=== PATIENT | female | born 1950 | race Caucasian/White ===

== ENCOUNTER 2020-11-05 09:31 | Outpatient (REF) | payer BC, SELFPAY ==
[2020-11-05 12:03] LABS: Alanine Aminotransferase 10 U/L (0-31); Anion Gap 15 (12-20); Aspartate Amino Transferase 15 U/L (5-31); Blood Urea Nitrogen 11 mg/dL (9-16); Calcium 9.1 mg/dL (8.4-10.2); Carbon Dioxide 25 mmol/L (22-29); Chloride 108 mmol/L (96-108); Cholesterol 180 mg/dL; Estimated Glomerular Filt Rate > 60; Glucose Fasting 74 mg/dL (60-99); HDL Cholesterol 49 mg/dL; LDL Cholesterol Calculated 115 mg/dl; Potassium 4.5 mmol/L (3.3-5.1); Sodium 143 mmol/L (135-145); Triglycerides 82 mg/dL
[2020-11-05 12:08] LABS: Vitamin D 25-OH Total 49.6 ng/mL (>30)
== END 2020-11-05 09:32 | disposition home or self-care (01) ==
LOC: HO.HMGCLDS 09:31
PROVIDERS: PCP Internal Medicine; Visit Provider Internal Medicine
DX: M81.0 Age-related osteoporosis without current pathological fracture (principal); I10 Essential (primary) hypertension; E78.5 Hyperlipidemia, unspecified; Z78.0 Asymptomatic menopausal state; Z86.79 Personal history of other diseases of the circulatory system
CPT/HCPCS: 36415; 80048; 80061; 82306; 84450; 84460

== ENCOUNTER 2020-11-28 13:00 | Outpatient (RCR) | payer BC, SELFPAY ==
--- NOTE | 2021-05-15 09:42 | MHC.PT.DC ---
[facility] [place] Office [place] Office [place] Office [address] Nite[place] Gauthier [address] [phone] F: [phone] F: [phone] F: [phone] F: [phone] Physical Therapy Discharge Report Diagnosis: R shoulder pain Date of Surgery: Date of Evaluation: 11/26/20 Date of Discharge: 01/15/21 Treatments to Date: 2 Cancellations to Date: 0 No Shows to Date: 0 Discharge Status: Discharge Summary: Pt elected to stop PT at this time. Unsafe incline. She does have a brief HEP. Electronically signed by: Brandan Burks PT Please sign and return to therapist. Thank you for your referral.
== END 2021-01-15 08:45 | disposition home or self-care (01) ==
LOC: HO.PTCHIC 13:00
PROVIDERS: PCP Internal Medicine; Visit Provider Internal Medicine
DX: M25.511 Pain in right shoulder (principal)
CPT/HCPCS: 97110; 97140; 97162

== ENCOUNTER 2021-01-01 11:56 | Outpatient (REF) | payer BC, SELFPAY ==
--- NOTE | ~2021-01-01 | MM_ITS ---
EXAMINATION: MM SCREENING DIGITAL BREAST TOMOSYNTHESIS, BILATERAL CLINICAL INFORMATION: Screening. Asymptomatic. Right excisional biopsy 06/09/2018 (Benign breast tissue with radial sclerosing lesion, sclerosing adenosis, usual ductal hyperplasia, apocrine metaplasia, microcysts and fibrocystic changes with microcalcifications. Biopsy site changes are present). The lifetime risk of breast cancer based on the Tyrer-Cuzick Model is 7%. COMPARISON: Mammography: 09/21/2019, 12/10/2018, 06/09/2018, 04/22/2018, 04/09/2018, 11/26/2016 TECHNIQUE: Digital breast tomosynthesis is performed in both the craniocaudal and mediolateral oblique views along with computer-aided detection (CAD). Synthesized 2D images are generated from the tomosynthesis. FINDINGS: The breasts are heterogeneously dense, which may obscure small masses (ACR BI-RADS breast composition Category c). Parenchymal pattern is similar to prior study. There are post surgical changes right breast with stable scarring anterior breast. Neither breast shows interval mass or architectural abnormality. There are benign coarse calcifications again seen central left breast and mid 12:00 right breast. The axilla and skin contours are unremarkable. No significant changes. MM/MM tomosynthesis screening BI IMPRESSION: No mammographic evidence of malignancy. ASSESSMENT: BI-RADS 2: Benign RECOMMENDATION: Routine annual mammography screening. This patient's information was entered into a reminder system with a target due date for their next mammogram.
--- NOTE | ~2021-01-01 | MM_ITS ---
EXAMINATION: BONE DENSITOMETRY CLINICAL INDICATION: Asymptomatic menopausal state. COMPARISON: Baseline BD dated 04/09/2018. TECHNIQUE: Using a [employer] DXA System (software version: 13.1) manufactured by [employer], dual-energy x-ray absorptiometry was performed of the lumbar spine and left hip. The images are of good technical quality. Summary results are attached. FINDINGS: AP SPINE L1-L4 (excluding L3): The data of L1-L4 has been changed to exclude the L3 vertebral body, because probable degenerative changes at this level may cause overestimation of lumbar spine density. Current: BMD 0.971 g/cm2, Z-score 0.6, T-score -1.7, osteopenia, 1.7% increase from baseline (<5% change is not significant). Baseline: BMD 0.955 g/cm2. LEFT FEMUR, NECK: Current: BMD 0.670 g/cm2, Z-score -0.6, T-score -2.6, osteoporosis. Baseline: BMD 0.666 g/cm2. LEFT FEMUR, TOTAL: Current: BMD 0.668 g/cm2, Z-score -0.8, T-score -2.7, osteoporosis, 0.9% increase from baseline (<5% change is not significant). Baseline: BMD 0.662 g/cm2. IDENTIFIED RISK FACTORS: Menopause, history of fracture (adult), tobacco use (current smoker), height loss. HISTORY OF FRACTURE: Wrist. MEDICATIONS: Vitamin D. MM/XR DEXA axial skeleton IMPRESSION: 1. DIAGNOSIS: Osteoporosis based on the lowest T-score value of -2.7 in the total femur applying World Health Organization criteria. 2. 10-YEAR FRACTURE RISK PREDICTION, FRAX: Major osteoporotic fracture (clinical spine, forearm, hip or shoulder) 24.7%. Hip fracture 10.2%. 3. Treatment Recommendations: NOF guidelines recommend consideration for treatment in postmenopausal women and men age 50 and older presenting with the following: -A hip or vertebral (clinical or morphometric) fracture. -T-score less than or equal to -2.5 at the femoral neck or spine after appropriate evaluation to exclude secondary causes. -Low bone mass at the hip or spine and a 10-year fracture probability by FRAX of greater than or equal to 3% for hip fracture or greater than or equal to 20% for major osteoporotic fracture based on the [place] adapted WHO algorithm. 4. Other Recommendations: All treatment decisions require clinical judgment and consideration of individual patient factors, including patient preferences, comorbidities, previous drug use, risk factors not captured in the FRAX model (e.g. frailty, falls, vitamin D deficiency, increased bone turnover, interval significant decline in bone density) and possible under or overestimation of fracture risk by FRAX. Additional medical evaluation for secondary cause of low bone mineral density may be appropriate. FUTURE SCAN RECOMMENDATION: People with diagnosed cases of osteoporosis or at high risk for fracture should have regular bone mineral density tests. For patients eligible for Medicare, routine testing is allowed once every 2 years. The testing frequency can be increased to one year for patients who have rapidly progressing disease, those who are receiving or discontinuing medical therapy to restore bone mass, or have additional risk factors.
== END 2021-01-01 11:57 | disposition home or self-care (01) ==
LOC: HO.MAMMO 11:56
PROVIDERS: PCP Internal Medicine; Visit Provider Internal Medicine
DX: Z13.820 Encounter for screening for osteoporosis (principal); Z78.0 Asymptomatic menopausal state; Z12.31 Encounter for screening mammogram for malignant neoplasm of breast
CPT/HCPCS: 77063; 77067; 77080

== ENCOUNTER 2021-08-05 12:32 | Outpatient (REF) | payer BC, SELFPAY ==
[2021-08-05 14:12] LABS: Alanine Aminotransferase 7 U/L (0-31); Anion Gap 11 (12-20); Aspartate Amino Transferase 13 U/L (5-31); Blood Urea Nitrogen 14 mg/dL (9-16); Calcium 9.7 mg/dL (8.4-10.2); Carbon Dioxide 26 mmol/L (22-29); Chloride 107 mmol/L (96-108); Cholesterol 160 mg/dL; Estimated Glomerular Filt Rate 58; Glucose Fasting 94 mg/dL (60-99); HDL Cholesterol 34 mg/dL; LDL Cholesterol Calculated 91 mg/dl; Potassium 4.4 mmol/L (3.3-5.1); Sodium 140 mmol/L (135-145); Triglycerides 178 mg/dL
[2021-08-05 14:35] LABS: Vitamin D 25-OH Total 54.7 ng/mL (>30)
== END 2021-08-05 12:33 | disposition home or self-care (01) ==
LOC: HO.HMGCLDS 12:32
PROVIDERS: PCP Internal Medicine; Visit Provider Internal Medicine
DX: E78.5 Hyperlipidemia, unspecified (principal); M81.0 Age-related osteoporosis without current pathological fracture; Z78.0 Asymptomatic menopausal state; I10 Essential (primary) hypertension
CPT/HCPCS: 36415; 80048; 80061; 82306; 84450; 84460

== ENCOUNTER 2022-03-24 10:24 | Outpatient (REF) | payer BC, SELFPAY ==
[2022-03-24 10:56] LABS: MANUAL DIFF FLAG NO
--- NOTE | 2022-03-24 11:00 | ECG_ITS ---
Test Reason : HYPERLIPIDEMIA Blood Pressure : / mmHG Vent. Rate : 087 BPM Atrial Rate : 087 BPM P-R Int : 128 ms QRS Dur : 070 ms QT Int : 368 ms P-R-T Axes : 079 056 078 degrees QTc Int : 442 ms Normal sinus rhythm Normal ECG No previous ECGs available Referred By: Shilpa Maurer Electronically Signed By:KYLE OSORIO
[2022-03-24 11:37] LABS: Basophils Absolute Auto 0.1 X10*3/uL (0.0-0.2); Basophils Percent Auto 1.3 % (0-2); Eosinophils Absolute Auto 0.2 X10*3/uL (0.0-0.4); Eosinophils Percent Auto 1.9 % (0-4); Hematocrit 37.2 % (37.0-47.0); Hemoglobin 12.2 g/dl (12.0-16.0); Imm Gran Abs Auto 0.03 X10*3/uL (0.00-0.03); Imm Gran Pct Auto 0.3 % (0.0-0.4); Lymphocytes Absolute Auto 2.3 X10*3/uL (1.2-4.9); Lymphocytes Percent Auto 23.3 % (20-40); Mean Corpuscular HGB Conc 32.8 g/dl (31.0-35.0); Mean Corpuscular Volume 94.4 fL (80.0-98.0); Mean Platelet Volume 10.1 fL (9.4-12.3); Monocytes Absolute Auto 0.7 X10*3/uL (0.1-1.2); Monocytes Percent Auto 6.8 % (2-11); Neutrophils Absolute Auto 6.6 x10*3/uL (2.0-8.3); Neutrophils Percent Auto 66.4 % (45-73); Platelet Count 304 X10*3/uL (160-400); Red Blood Count 3.94 X10*6/uL (4.20-5.50); Red Cell Distribution Width 14.6 % (11.0-16.0); White Blood Count 9.9 X10*3/uL (4.8-10.8)
[2022-03-24 12:23] LABS: Alanine Aminotransferase 7 U/L (0-31); Anion Gap 15 (12-20); Aspartate Amino Transferase 13 U/L (5-31); Blood Urea Nitrogen 10 mg/dL (9-16); Calcium 9.3 mg/dL (8.4-10.2); Carbon Dioxide 26 mmol/L (22-29); Chloride 107 mmol/L (96-108); Cholesterol 149 mg/dL; Estimated Glomerular Filt Rate 49; Glucose Fasting 84 mg/dL (60-99); HDL Cholesterol 39 mg/dL; LDL Cholesterol Calculated 94 mg/dl; Potassium 4.7 mmol/L (3.3-5.1); Sodium 143 mmol/L (135-145); Triglycerides 83 mg/dL
[2022-03-24 12:29] LABS: Vitamin D 25-OH Total 65.5 ng/mL (>30)
== END 2022-03-24 10:25 | disposition home or self-care (01) ==
LOC: HO.LAB 10:24
PROVIDERS: PCP Internal Medicine; Visit Provider Internal Medicine
DX: Z01.818 Encounter for other preprocedural examination (principal); E78.5 Hyperlipidemia, unspecified; Z78.0 Asymptomatic menopausal state; Z95.828 Presence of other vascular implants and grafts
CPT/HCPCS: 36415; 80048; 80061; 82306; 84450; 84460; 85025; 93005

== ENCOUNTER 2022-10-01 13:09 | Outpatient (REF) | payer BC, SELFPAY ==
[2022-10-01 14:20] LABS: Alanine Aminotransferase 6 U/L (0-31); Aspartate Amino Transferase 14 U/L (5-31); Cholesterol 155 mg/dL; HDL Cholesterol 43 mg/dL; LDL Cholesterol Calculated 94 mg/dl; Triglycerides 93 mg/dL
== END 2022-10-01 13:10 | disposition home or self-care (01) ==
LOC: HO.HMGCLDS 13:09
PROVIDERS: PCP Internal Medicine; Visit Provider Internal Medicine
DX: F41.8 Other specified anxiety disorders (principal); N95.9 Unspecified menopausal and perimenopausal disorder
CPT/HCPCS: 36415; 80061; 82306; 84450; 84460

== ENCOUNTER 2022-10-08 14:56 | Outpatient (REF) | payer BC, SELFPAY ==
--- NOTE | ~2022-10-08 | MM_ITS ---
EXAMINATION: MM SCREENING DIGITAL BREAST TOMOSYNTHESIS, BILATERAL CLINICAL INFORMATION: Screening. Asymptomatic. Right excisional biopsy 06/09/2018 (radial sclerosing lesion, sclerosing adenosis, usual ductal hyperplasia, apocrine metaplasia, microcysts and fibrocystic changes). The lifetime risk of breast cancer based on the Tyrer-Cuzick Model is 4%. COMPARISON: Multiple prior mammography exams, most recent 01/01/2021. TECHNIQUE: Digital breast tomosynthesis is performed in both the craniocaudal and mediolateral oblique views along with computer-aided detection (CAD). Synthesized 2D images are generated from the tomosynthesis. FINDINGS: The breasts are heterogeneously dense, which may obscure small masses (ACR BI-RADS breast composition Category c). Breast tissue composition borders on extremely dense. There is stable scarring anterior right breast. Scattered bilateral asymmetries are similar to prior exam. No interval architectural abnormality or developing density. No abnormal calcifications. The axilla are unremarkable. No significant changes. MM/MM tomosynthesis screening BI IMPRESSION: No mammographic evidence of malignancy. ASSESSMENT: BI-RADS 2: Benign RECOMMENDATION: Routine annual mammography screening. This patient's information was entered into a reminder system with a target due date for their next mammogram.
== END 2022-10-08 14:57 | disposition home or self-care (01) ==
LOC: HO.MAMMO 14:56
PROVIDERS: Visit Provider Internal Medicine
DX: Z12.31 Encounter for screening mammogram for malignant neoplasm of breast (principal)
CPT/HCPCS: 77063; 77067

== ENCOUNTER 2022-12-25 12:46 | Outpatient (AMB) | payer BC, SELFPAY ==
[2022-12-25 13:06] VITALS: BP 108/64; PULSE 94; O2SAT 98; BMI 19.2
--- NOTE | 2022-12-25 13:06 | A.OFFPC_ITS ---
<Statement entered by Shilpa Maurer MD - 08/28/25 00:12> This note has been administratively?closed. Vital Signs 12/25/22 13:06 Height 4 ft 11 in Weight 95 lb BMI 19.2 BP 108/64 Blood Pressure Location Rt brachial Position Sitting Pulse 94 Pulse Source Pulse Oximeter Pulse Oximetry (%) 98 Oxygen Delivery Method Room Air Intake Visit Reasons: Physical exam Intake Note: Pt is here today for her PE Allergies No Known Allergies (No Known Allergies*) Allergy (Verified 07/01/24 11:06) anti-depressions Allergy (Unknown, Uncoded 07/01/24 11:06) nausea and vomiting Medication List - Last Reconciled 12/25/22 by Shilpa Maurer MD alprazolam 1 mg PO atorvastatin 40 mg PO DAILY cholecalciferol (vitamin D3) 50 mcg PO DAILY desoximetasone 0.25% 1 appl topical BID mometasone 0.1% 1 appl topical DAILY 10 days quetiapine 50 mg PO BEDTIME Tobacco use date assessed: 12/25/22 Fall risk assessment: No Falls in past year Last assessed Fall Risk: 12/25/22 HPI Physical exam HPI Details 72-year-old lady here today for physical exam. She has dyslipidemia currently on atorvastatin 40 mg daily, has osteoporosis, declines further treatment or testing, taking vitamin-D 3 supplements . She has history of depression with anxiety currently on alprazolam as needed as well as quetiapine 50 mg at bedtime currently followed by Antolin Gore and gets regular counseling. She is up-to-date with her screening mammogram, due for a bone density scan this year, but patient declines testing as she does not want to start any treatment for her osteoporosis.. Has never had a colon cancer screening, declines procedure but willing to do the Cologuard testing. Declines getting COVID vaccine or flu shot, getting pneumonia vaccine or shingles vaccine, but is up-to-date with her Tdap [facility] Medical History (Updated 07/02/24 @ 02:31 by Shilpa Maurer MD) Adenocarcinoma of lung Lung cancer History of non-ST elevation myocardial infarction (NSTEMI) Osteoporosis Vaccination declined by patient Dermatochalasis, bilateral Ptosis, left Positional lightheadedness Otalgia of right ear Dermatitis Not ready to quit smoking Right shoulder pain Menopause Cataracts, both eyes Unspecified amblyopia, left eye Closed extra-articular fracture of distal end of right radius Eczema Depression with anxiety Dyslipidemia History of abdominal aortic aneurysm Astigmatism of both eyes Surgical History History of blepharoplasty History of repair of aneurysm of abdominal aorta using endovascular stent graft H/O breast biopsy History of tonsillectomy Family History Father No problems noted. Mother No problems noted. Sister No problems noted. Son No problems noted. Maternal Aunt No problems noted. Social History Housing: House Alcohol intake: never Patient Tobacco Use Status: Former Tobacco user e-Cigarette/Vaping Use: Never Used service: No Current occupational status: retired Cognitive needs: No Hearing needs: No Vision needs: Yes Questionnaire PHQ-9 Over the last 2 weeks, how often have you been bothered by any of the following problems? 1. Little interest or pleasure in doing things: more than half the days 2. Feeling down, depressed, or hopeless: more than half the days 3. Trouble falling or staying asleep, or sleeping too much: several days 4. Feeling tired or having little energy: more than half the days 5. Poor appetite or overeating: nearly every day 6. Feeling bad about yourself - or that you are a failure or have let yourself or your family down: several days 7. Trouble concentrating on things, such as reading the newspaper or watching television: several days 8. Moving or speaking so slowly that other people could have noticed. Or the opposite - being so fidgety or restless that you have been moving around a lot more than usual: not at all 9. Thoughts that you would be better off or of hurting yourself in some way: several days Total score: 13 Depression Screening Interpretation: Positive Depression Screening Follow-up: Existing condition, In treatment and Community Mental Health Worker F/U (Followed by Benny Gore and gets regular counseling) [id number] - PHQ-9 Billing: Yes Source: Developed by Drs. Shaji Sky, Lauren BJey Crowell and colleagues, with an educational lan from [employer]. Thrive Questionnaire Date Thrive assessed: 08/05/21 I am a: Patient What is your living situation today?: I have a steady place to live Within the past 12 months, did the food you bought not last and you didn't have the money to get more?: Never true Within the past 12 months, did you worry whether your food would run out before you got money to buy more?: Never true Do you have trouble paying for medicines?: No Do you have trouble getting transportation to medical appointments?: No Do you have trouble paying your heating and electricity bill?: No Do you have trouble taking care of your child, family member or friend?: No Do you have trouble with day-to-day activities such as bathing, preparing meals, shopping, managing finances, etc.?: No Are you currently unemployed and looking for a job?: No Are you interested in more education?: No AUDIT C Alcohol Use Questionnaire (AUDIT-C) 1. How often do you have a drink containing alcohol?: Never Total Score: 0 KIRA-7 AMB Questionnaire KIRA-7 Date KIRA - 7 assessed: 12/25/22 Feeling nervous, anxious, or on edge: 3 = Nearly every day Not being able to stop or control worryin = More than half the days Worrying too much about different things: 3 = Nearly every day Trouble relaxin = Nearly every day Being so restless that it is hard to sit still: 2 = More than half the days Becoming easily annoyed or irritable: 3 = Nearly every day Feeling afraid as if something awful might happen: 1 = Several days Total KIRA-7 score (0-4 normal; 5-9 mild; 10-14 moderate; 15-21 severe): 17 Source: Developed by Drs. Shaji Sky, Jey Grace and colleagues, with an educational lan from [employer]. KIRA-7 Assessment Billing KIRA-7 Assessment Tool: KIRA-7 Assessment 93027 Review of Systems Const Denies body aches, Denies fatigue, Denies fever(s), Reports poor appetite and Denies weakness Eyes Details: Still with amblyopia on left Denies change in vision, Denies eye discharge and Denies itchy eyes ENT Reports Normal hearing present, Denies nasal congestion, Denies nasal discharge and Denies sore throat Card Denies chest pain, Denies lightheadedness, Denies palpitations and Denies dyspnea Resp Denies chest congestion, Denies cough, Denies dyspnea and Denies wheezing GI Denies abdominal pain, Denies change in bowel habits and Denies heartburn Denies urinary frequency, Denies dysuria and Denies urinary urgency Musc Reports no additional complaints Skin/Breast Reports as per HPI Neuro Reports Normal hearing present, Denies Sensory deficit (Neuro) and Denies weakness Psych Reports as per HPI Endo Denies fatigue, Denies polydipsia, Denies polyuria and Denies palpitations Oliver/Lymph Denies easy bruising Aller/Immun Denies itchy eyes, Denies seasonal rhinorrhea and Denies wheezing Physical exam (Primary Care) Vital Signs: Last Vital Signs Pulse 94 12/25/22 13:06 BP 108/64 12/25/22 13:06 Pulse Ox 98 12/25/22 13:06 Oxygen Delivery Method Room Air 12/25/22 13:06 BMI result Body Mass Index 19.2 Tobacco/Smoking Status: Tobacco use Status Tobacco use date assessed 12/25/22 12/25/22 13:11 Patient Tobacco Use Status Former Tobacco user 12/25/22 13:06 e-Cigarette/Vaping Use Never Used 12/25/22 13:06 PHQ-9: PHQ-9 Score PHQ-9: Total score 13 12/25/22 13:57 Depression Screening Interpretation: Positive Depression Screening Follow-up: Existing condition, In treatment and Community Mental Health Worker F/U (Followed by Benny Gore and gets regular counseling) Thrive Assessment: Date of Thrive Assessment Date Thrive assessed 08/05/21 12/25/22 13:06 Const General: cooperative and comfortable Orientation/consciousness: patient oriented x3 Limitations: no limitations HENMT Head: Yes normocephalic and Yes atraumatic Ears: hearing grossly normal bilaterally, TM normal on the left and TM abnormal dull and with loss of landmarks on the right General nose exam: Normal external nose present and No nasal discharge present Face and sinus: Yes face symmetric Mouth: Normal oral and palatal mucosa present and moist mucous membranes Eyes Eyelids: Yes eyelid abnormality (Drooping of both upper eyelids) Conjunctivae: conjunctivae normal Sclerae: sclerae normal Pupils: Equal, round and reactive pupils present EOM: EOMs intact bilaterally Neck Neck: Yes full ROM and Yes no lymphadenopathy Thyroid: Thyroid normal Chest Breast/axilla palpation: normal palpation of the breasts Resp Effort & Inspection: normal respiratory effort and able to speak in complete sentences Auscultation: clear to auscultation bilaterally Cardio Rate: regular rate Rhythm: regular rhythm Heart sounds: S1 normal heart sound present and S2 normal heart sound present GI Palpation (GI): Soft to palpation, nontender and no guarding Auscultation: normal bowel sounds General: Yes no CVA tenderness Back/Spine/Pelvis Back: no CVA tenderness and No back tenderness Skin General skin exam: dry skin Neuro General: patient oriented x3, gait normal, moves all extremities, no focal motor deficits and CN's II-XI intact bilaterally Cranial nerves: Yes Equal, round and reactive pupils present and Yes Normal hearing present Cognition (Neuro): normal cognition Gait exam (Neuro): Normal gait present Motor exam (neuro): 5/5 motor strength present throughout Sensory Exam: No Sensory deficit (Neuro) Extrem General: Yes normal to inspection, Yes full ROM, Yes no pedal edema and Yes normal gait Psych Appearance: grossly normal Mental Status: mental status grossly normal Speech and movement: Normal speech and movement present Affect: normal affect Attitude: cooperative Thought process: Normal thought process present Thought content: Normal thought content present Coding Level of Care Code Admin Sign Off/No Billing Diagnoses Depression with anxiety F41.8 Dyslipidemia E78.5 Annual visit for general adult medical examination with abnormal findings Z00.01 Additional Codes KIRA-7 Assessment Billing - KIRA-7 Assessment Tool: KIRA-7 Assessment 45040 ([id number])
== END 2022-12-25 15:30 | disposition home or self-care (01) ==
LOC: HO.HMGC 12:46
PROVIDERS: PCP Internal Medicine; Visit Provider Internal Medicine
DX: F41.8 Other specified anxiety disorders (principal); E78.5 Hyperlipidemia, unspecified; Z00.01 Encounter for general adult medical examination with abnormal findings
CPT/HCPCS: 99499

== ENCOUNTER 2023-12-29 14:43 | Outpatient (REF) | payer MEDICARE, SELFPAY ==
[2023-12-29 16:40] LABS: Alanine Aminotransferase 6 U/L (0-31); Aspartate Amino Transferase 15 U/L (5-31); Cholesterol 169 mg/dL (<200); HDL Cholesterol 44 mg/dL (>40); LDL Cholesterol Calculated 105 mg/dL (<100); Triglycerides 100 mg/dL (<150)
== END 2023-12-29 14:44 | disposition home or self-care (01) ==
LOC: HO.HMGCLDS 14:43
PROVIDERS: PCP Internal Medicine; Visit Provider Internal Medicine
DX: E78.5 Hyperlipidemia, unspecified (principal)
CPT/HCPCS: 36415; 80061; 84450; 84460

== ENCOUNTER 2023-12-31 10:46 | Outpatient (AMB) | payer MEDICARE, SELFPAY ==
[2023-12-31 11:42] VITALS: BP 116/74; PULSE 93; O2SAT 96; BMI 19.6
--- NOTE | 2023-12-31 11:42 | MHC.PC.OV ---
Vital Signs 12/31/23 11:42 Height 4 ft 11 in Weight 97 lb BMI 19.6 BP 116/74 Blood Pressure Location Lt brachial Position Sitting Pulse 93 Pulse Source Pulse Oximeter Pulse Oximetry (%) 96 Oxygen Delivery Method Room Air Intake Visit Reasons: Physical exam Intake Note: pt here for annual PE. mammogram 10/08/22. Bone density 01/01/21 Allergies No Known Allergies [No Known Allergies*] Allergy (Verified 04/27/24 02:05) anti-depressions Allergy (Unknown, Uncoded 04/27/24 02:05) nausea and vomiting Medication List - Last Reconciled 12/31/23 by Shilpa Maurer MD alprazolam 1 mg PO atorvastatin 20 mg PO DAILY cholecalciferol (vitamin D3) 50 mcg PO DAILY lamotrigine mg PO mometasone 0.1% 1 appl topical DAILY 10 days quetiapine 50 mg PO BEDTIME Tobacco use date assessed: 12/31/23 Fall risk assessment: 1 Fall in past year Last assessed Fall Risk: 12/31/23 Dental Screening Dental Screen Date: 12/31/23 Did you have a dental visit in the last 12 months?: No Was dental information given to patient?: No HPI Physical exam HPI Details 74-year-old lady with history of lung cancer, history of non-STEMI, osteoporosis , depression with anxiety, dyslipidemia, history done aortic aneurysm post repair, here today for physical exam. She has no new complaints at present time. She is overdue for her screening mammogram, last done 10/13/2022 and her bone density scan was done in 2020 which showed presence of osteoporosis in left femoral neck and left femur, osteopenia in lumbar spine. Never had a screening colonoscopy but did Cologuard testing for colon cancer screening last year which came back with negative findings, repeat due again in 2025. She has had Pneumovax 23 and Tdap, but does not want to get any other vaccines. [facility] Medical History (Updated 04/10/24 @ 13:02 by Shilpa Maurer MD) Lung cancer History of non-ST elevation myocardial infarction (NSTEMI) Osteoporosis Vaccination declined by patient Dermatochalasis, bilateral Ptosis, left Positional lightheadedness Otalgia of right ear Dermatitis Not ready to quit smoking Right shoulder pain Menopause Cataracts, both eyes Unspecified amblyopia, left eye Closed extra-articular fracture of distal end of right radius Eczema Depression with anxiety Dyslipidemia History of abdominal aortic aneurysm Astigmatism of both eyes Surgical History History of blepharoplasty History of repair of aneurysm of abdominal aorta using endovascular stent graft H/O breast biopsy History of tonsillectomy Family History Father No problems noted. Mother No problems noted. Sister No problems noted. Son No problems noted. Maternal Aunt No problems noted. Social History Housing: House Alcohol intake: never Patient Tobacco Use Status: Former Tobacco user e-Cigarette/Vaping Use: Never Used service: No Current occupational status: retired Cognitive needs: No Hearing needs: No Vision needs: Yes Questionnaire PHQ-9 Over the last 2 weeks, how often have you been bothered by any of the following problems? 1. Little interest or pleasure in doing things: more than half the days 2. Feeling down, depressed, or hopeless: nearly every day 3. Trouble falling or staying asleep, or sleeping too much: not at all 4. Feeling tired or having little energy: several days 5. Poor appetite or overeating: nearly every day 6. Feeling bad about yourself - or that you are a failure or have let yourself or your family down: several days 7. Trouble concentrating on things, such as reading the newspaper or watching television: not at all 8. Moving or speaking so slowly that other people could have noticed. Or the opposite - being so fidgety or restless that you have been moving around a lot more than usual: not at all 9. Thoughts that you would be better off or of hurting yourself in some way: several days Total score: 11 Depression Screening Interpretation: Positive (Currently on medication, followed by Antolin Gore) Depression Screening Follow-up: Existing condition, In treatment and Community Mental Health Worker F/U Depression Screening Done: Yes 13170 - PHQ-9 Billing: Yes Source: Developed by Drs. Shaji Sky, Lauren Cheung, Jey Hardy and colleagues, with an educational lan from [employer]. Thrive Questionnaire Date Thrive assessed: 12/31/23 I am a: Patient What is your living situation today?: I have a steady place to live Within the past 12 months, did the food you bought not last and you didn't have the money to get more?: Never true Within the past 12 months, did you worry whether your food would run out before you got money to buy more?: Never true Do you have trouble paying for medicines?: No Do you have trouble getting transportation to medical appointments?: No Do you have trouble paying your heating and electricity bill?: No Do you have trouble taking care of your child, family member or friend?: No Do you have trouble with day-to-day activities such as bathing, preparing meals, shopping, managing finances, etc.?: No Are you currently unemployed and looking for a job?: No Are you interested in more education?: No Please select the resources that you would like help with: None Currently or been in a relationship where the following occur: no concerns reported THRIVE Score: 0 AUDIT C Alcohol Use Questionnaire (AUDIT-C) 1. How often do you have a drink containing alcohol?: Never Total Score: 0 KIRA-7 AMB Questionnaire KIRA-7 Date KIRA - 7 assessed: 12/31/23 Feeling nervous, anxious, or on edge: 3 = Nearly every day Not being able to stop or control worryin = Several days Worrying too much about different things: 3 = Nearly every day Trouble relaxin = More than half the days Being so restless that it is hard to sit still: 0 = Not at all Becoming easily annoyed or irritable: 3 = Nearly every day Feeling afraid as if something awful might happen: 3 = Nearly every day Total KIRA-7 score (0-4 normal; 5-9 mild; 10-14 moderate; 15-21 severe): 15 Source: Developed by Drs. Shaji Sky, Lauren Cheung, Jey Hardy and colleagues, with an educational lan from [employer]. KIRA-7 Assessment Billing KIRA-7 Assessment Tool: KIRA-7 Assessment 63341 (Currently followed by Antolin Gore) Review of Systems Const Denies body aches, Denies fever(s), Reports poor appetite and Denies weakness Eyes Details: amblyopia on left Denies change in vision ENT Reports Normal hearing present, Denies nasal congestion, Denies nasal discharge and Denies sore throat Card Denies chest pain, Denies lightheadedness, Denies palpitations and Denies dyspnea Resp Denies chest congestion, Denies cough, Denies dyspnea and Denies wheezing GI Denies abdominal pain, Denies change in bowel habits and Denies heartburn Denies urinary frequency, Denies dysuria and Denies urinary urgency Musc Reports no additional complaints Skin/Breast Reports as per HPI Neuro Reports Normal hearing present, Denies Sensory deficit (Neuro) and Denies weakness Psych Reports as per HPI Endo Denies polydipsia, Denies polyuria and Denies palpitations Oliver/Lymph Denies easy bruising Aller/Immun Denies seasonal rhinorrhea and Denies wheezing Physical exam (Primary Care) Vital Signs: Last Vital Signs Pulse 93 12/31/23 11:42 BP 116/74 12/31/23 11:42 Pulse Ox 96 12/31/23 11:42 Oxygen Delivery Method Room Air 12/31/23 11:42 BMI result Body Mass Index 19.6 Tobacco/Smoking Status: Tobacco use Status Tobacco use date assessed 12/31/23 12/31/23 11:56 Patient Tobacco Use Status Former Tobacco user 12/31/23 11:42 e-Cigarette/Vaping Use Never Used 12/31/23 11:42 PHQ-9: PHQ-9 Score PHQ-9: Total score 11 12/31/23 12:43 Depression Screening Interpretation: Positive (Currently on medication, followed by Antolin Gore) Depression Screening Follow-up: Existing condition, In treatment and Community Mental Health Worker F/U Thrive Assessment: Date of Thrive Assessment Date Thrive assessed 12/31/23 12/31/23 11:56 Currently or been in a relationship where the following occur: no concerns reported Const General: cooperative and comfortable Orientation/consciousness: patient oriented x3 HENMT Head: Yes normocephalic Ears: hearing grossly normal bilaterally General nose exam: Normal external nose present and No nasal discharge present Face and sinus: Yes face symmetric Mouth: Normal oral and palatal mucosa present and moist mucous membranes Eyes Eyelids: Yes eyelid abnormality (Drooping of both upper eyelids) Conjunctivae: conjunctivae normal Sclerae: sclerae normal Pupils: Equal, round and reactive pupils present Neck Neck: Yes full ROM and Yes no lymphadenopathy Thyroid: Thyroid normal Resp Effort & Inspection: normal respiratory effort and able to speak in complete sentences Auscultation: clear to auscultation bilaterally Cardio Rate: regular rate Rhythm: regular rhythm Heart sounds: S1 normal heart sound present and S2 normal heart sound present GI Palpation (GI): Soft to palpation, nontender and no guarding Auscultation: normal bowel sounds General: Yes no CVA tenderness Back/Spine/Pelvis Back: no CVA tenderness and No back tenderness Skin General skin exam: dry skin Neuro General: patient oriented x3, gait normal, moves all extremities, no focal motor deficits and CN's II-XI intact bilaterally Cranial nerves: Yes Equal, round and reactive pupils present and Yes Normal hearing present Cognition (Neuro): normal cognition Gait exam (Neuro): Normal gait present Motor exam (neuro): 5/5 motor strength present throughout Sensory Exam: No Sensory deficit (Neuro) Extrem General: Yes normal to inspection, Yes full ROM, Yes no pedal edema and Yes normal gait Psych Appearance: grossly normal Mental Status: mental status grossly normal Speech and movement: Normal speech and movement present Affect: normal affect Attitude: cooperative Thought process: Normal thought process present Thought content: Normal thought content present Results Reviewed Results Reviewed: Name: Florinda Armenta Age/Sex: 73/F : 1950 Unit#: [id number] Attend Dr: Shilpa Maurer MD Re12/29/23 Status: DEP REF Location: [facility] Disch: SPEC : [id number] GRABIEL: 12/29/23 STATUS: COMP REQ : [id number] RECD: 12/29/[address]: Shilpa Maurer MD COMP: 12/29/23 ENTERED: 12/29/[address]: ORDERED: AST, ALT, Lipid Panel Test Result Flag Reference AST (GOT) 15 5-31 U/L ALT (GPT) 6 0-31 U/L Triglyceride 100 <150 mg/dL Desirable Triglyceride: less than 150 mg/dL Borderline High Triglyceride 150-199 mg/dL High Triglyceride: 200-499 mg/dL Very High Triglyceride: greater than or equal to 5OO mg/dL Cholesterol 169 <200 mg/dL Desirable Cholesterol: less than 200 mg/dL Borderline High Cholesterol: 200-239 mg/dL High Cholesterol: greater than 239 mg/dL LDL Calculated 105 H <100 mg/dL Desirable LDL: less than 100 mg/dL Near Optimal/Above Optimal LDL: 110-129 mg/dL Borderline High LDL: 130-159 mg/dL High LDL: 160-189 mg/dL Very High LDL: greater than or equal to 190 mg/dL HDL 44 >40 mg/dL Desirable HDL: greater than 40 mg/dL Note: This HDL assay may give artificially low results in patients with liver disease. Coding Level of Care Code Est Pt Prev Care >65y(68878) Diagnoses Annual visit for general adult medical examination with abnormal findings Z00.01 Dyslipidemia E78.5 Depression with anxiety F41.8 History of repair of aneurysm of abdominal aorta using endovascular stent graft Z95.828 Eczema, unspecified type L30.9 Eczema type: unspecified Age-related osteoporosis without current pathological fracture M81.0 Osteoporosis type: age-related Presence of current pathological fracture: without current pathological fracture Advanced directives, counseling/discussion Z71.89 Vaccination declined by patient Z28.21 Additional Codes KIRA-7 Assessment Billing - KIRA-7 Assessment Tool: KIRA-7 Assessment 36422 ([id number])
== END 2023-12-31 12:37 | disposition home or self-care (01) ==
LOC: HO.HMGC 10:46
PROVIDERS: PCP Internal Medicine; Visit Provider Internal Medicine
DX: Z00.01 Encounter for general adult medical examination with abnormal findings (principal); E78.5 Hyperlipidemia, unspecified; F41.8 Other specified anxiety disorders; Z95.828 Presence of other vascular implants and grafts; L30.9 Dermatitis, unspecified; M81.0 Age-related osteoporosis without current pathological fracture; Z71.89 Other specified counseling; Z28.21 Immunization not carried out because of patient refusal
CPT/HCPCS: 96127; 99397

== ENCOUNTER 2024-01-08 14:19 | Outpatient (REF) | payer MEDICARE, SELFPAY ==
--- NOTE | ~2024-01-08 | US_ITS ---
EXAMINATION: US RETROPERITONEAL LIMITED (AORTA) CLINICAL INFORMATION: Presence of other vascular implants and grafts. Status post repair in 2004. COMPARISON: None available. TECHNIQUE: Jeronimo-scale, color Doppler and spectral Doppler evaluation of the abdominal aorta. FINDINGS: The aorta is atherosclerotic. The measurements of the aorta in maximum AP and transverse dimensions respectively are as follows: Proximal: 2.7 x 2.6 cm. Mid: 1.7 x 1.8 cm. Distal: 1.3 x 1.7 cm. PSV: 70.2 cm/s. The aortic stent or graft appears patent. The measurements of the common iliac arteries in maximum AP and TRV dimensions are as follows: Right Common Iliac Artery: 0.7 x 0.8 cm. Left Common Iliac Artery: 1.0 x 0.9 cm. US/US aorta IMPRESSION: Negative for abdominal aortic aneurysm.
== END 2024-01-08 14:20 | disposition home or self-care (01) ==
LOC: HO.HMGCX 14:19
PROVIDERS: PCP Internal Medicine; Visit Provider Internal Medicine
DX: Z95.828 Presence of other vascular implants and grafts (principal)
CPT/HCPCS: 76775

== ENCOUNTER 2024-04-07 14:52 | Outpatient (AMB) | payer MEDICARE, SELFPAY ==
[2024-04-07 15:07] VITALS: BP 98/70; PULSE 80; O2SAT 96; BMI 18.8
--- NOTE | 2024-04-07 15:07 | A.OFFPC_ITS ---
Vital Signs 04/07/24 15:07 Height 4 ft 11 in Weight 93 lb BMI 18.8 BP 98/70 Blood Pressure Location Lt brachial Position Sitting Pulse 80 Pulse Source Pulse Oximeter Pulse Oximetry (%) 96 Oxygen Delivery Method Room Air Intake Visit Reasons: HDF/ Heart Attack~ Dehydration Intake Note: Pt is here today for her HDF heart attack & dehydration Allergies No Known Allergies [No Known Allergies*] Allergy (Verified 04/07/24 15:51) anti-depressions Allergy (Unknown, Uncoded 04/07/24 15:51) nausea and vomiting Medication List - Last Reconciled 04/07/24 by Shilpa Maurer MD alprazolam 1 mg PO atorvastatin 40 mg PO DAILY cholecalciferol (vitamin D3) 50 mcg PO DAILY metoprolol tartrate 50 mg PO DAILY mometasone 0.1% 1 appl topical DAILY 10 days quetiapine 50 mg PO BEDTIME Tobacco use date assessed: 04/07/24 Fall risk assessment: No Falls in past year Last assessed Fall Risk: 04/07/24 Dental Screening Dental Screen Date: 04/07/24 Did you have a dental visit in the last 12 months?: No Did you have a dental problem in the last 6 months where you did not have access to dental care?: No Was dental information given to patient?: Patient declined HPI HDF/ Heart Attack~ Dehydration HPI Details 74-year-old lady with past medical histo ry of CAD, emphysema, anxiety, adenocarcinoma of the lung, 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 She is currently being followed by [facility] and will be starting chemotherapy she. She is scheduled to follow-up with Oncology and have a port placed 04/15/2024. She has an appointment for follow-up with her Cardiology, Dr. Schilling on 04/13/2024. Currently being followed for depression and anxiety disorder by Dr. Antolin Gore, who has patient taking alprazolam and quetiapine. Present patient states that she is, hanging in there , , getting regular counseling. Denies any chest pain, no shortness of breath, no lightheadedness, but has been having poor appetite and easy fatiueability. [facility] Medical History (Updated 04/10/24 @ 13:02 by Shilpa Maurer MD) Lung cancer History of non-ST elevation myocardial infarction (NSTEMI) Osteoporosis Vaccination declined by patient Dermatochalasis, bilateral Ptosis, left Positional lightheadedness Otalgia of right ear Dermatitis Not ready to quit smoking Right shoulder pain Menopause Cataracts, both eyes Unspecified amblyopia, left eye Closed extra-articular fracture of distal end of right radius Eczema Depression with anxiety Dyslipidemia History of abdominal aortic aneurysm Astigmatism of both eyes Surgical History History of blepharoplasty History of repair of aneurysm of abdominal aorta using endovascular stent graft H/O breast biopsy History of tonsillectomy Family History Father No problems noted. Mother No problems noted. Sister No problems noted. Son No problems noted. Maternal Aunt No problems noted. Social History Housing: House Alcohol intake: never Patient Tobacco Use Status: Former Tobacco user e-Cigarette/Vaping Use: Never Used service: No Current occupational status: retired Cognitive needs: No Hearing needs: No Vision needs: Yes Questionnaire Thrive Questionnaire Date Thrive assessed: 12/31/23 THRIVE Score: 0 KIRA-7 AMB Questionnaire KIRA-7 Date KIRA - 7 assessed: 12/31/23 Source: Developed by Drs. Shaji Sky, Lauren Cheung, Jey Hardy and colleagues, with an educational lan from [employer]. Review of Systems Const Reports as per HPI, Denies body aches, Denies fever(s), Reports poor appetite and Denies weakness Eyes Details: amblyopia on left Denies change in vision ENT Reports Normal hearing present, Denies nasal congestion, Denies nasal discharge and Denies sore throat Card Denies chest pain, Denies lightheadedness, Denies palpitations and Denies dyspnea Resp Denies chest congestion, Denies cough, Denies dyspnea and Denies wheezing GI Denies abdominal pain, Denies change in bowel habits and Denies heartburn Denies urinary frequency, Denies dysuria and Denies urinary urgency Musc Reports no additional complaints Skin/Breast Reports as per HPI Neuro Reports Normal hearing present, Denies Sensory deficit (Neuro) and Denies wea kness Psych Reports as per HPI Endo Denies polydipsia, Denies polyuria and Denies palpitations Oliver/Lymph Denies easy bruising Aller/Immun Denies seasonal rhinorrhea and Denies wheezing Physical exam (Primary Care) Vital Signs: Last Vital Signs Pulse 80 04/07/24 15:07 BP 98/70 04/07/24 15:07 Pulse Ox 96 04/07/24 15:07 Oxygen Delivery Method Room Air 04/07/24 15:07 BMI result Body Mass Index 18.8 Tobacco/Smoking Status: Tobacco use Status Tobacco use date assessed 04/07/24 04/07/24 15:10 Patient Tobacco Use Status Former Tobacco user 04/07/24 15:10 e-Cigarette/Vaping Use Never Used 04/07/24 15:10 Thrive Assessment: Date of Thrive Assessment Date Thrive assessed 12/31/23 04/07/24 15:10 Const General: cooperative and comfortable Orientation/consciousness: patient oriented x3 HENMT Head: Yes normocephalic Ears: hearing grossly normal bilaterally General nose exam: Normal external nose present and No nasal discharge present Face and sinus: Yes face symmetric Mouth: Normal oral and palatal mucosa present and moist mucous membranes Eyes Eyelids: Yes eyelid abnormality (Drooping of both upper eyelids) Conjunctivae: conjunctivae normal Sclerae: sclerae normal Pupils: Equal, round and reactive pupils present EOM: EOMs intact bilaterally Neck Neck: Yes full ROM and Yes no lymphadenopathy Thyroid: Thyroid normal Resp Effort & Inspection: normal respiratory effort and able to speak in complete sentences Auscultation: clear to auscultation bilaterally Cardio Rate: regular rate Rhythm: regular rhythm Heart sounds: S1 normal heart sound present and S2 normal heart sound present GI Palpation (GI): Soft to palpation, nontender and no guarding Auscultation: normal bowel sounds General: Yes no CVA tenderness Back/Spine/Pelvis Back: no CVA tenderness and No back tenderness Skin General skin exam: dry skin Neuro General: patient oriented x3, gait normal, moves all extremities, no focal motor deficits and CN's II-XI intact bilaterally Cranial nerves: Yes Equal, round and reactive pupils present and Yes Normal hearing present Cognition (Neuro): normal cognition Gait exam (Neuro): Normal gait present Motor exam (neuro): 5/5 motor strength present throughout Sensory Exam: No Sensory deficit (Neuro) Extrem General: Yes normal to inspection, Yes full ROM, Yes no pedal edema and Yes normal gait Psych Appearance: grossly normal Mental Status: mental status grossly normal Speech and movement: Normal speech and movement present Affect: normal affect Attitude: cooperative Thought process: Normal thought process present Thought content: Normal thought content present Assessment and Plan Assessment & Plan (1) History of non-ST elevation myocardial infarction (NSTEMI): Code(s): I25.2 - Old myocardial infarction Plan: Followed by cardiology at [facility], has an appointment on 04/13/[address] Schilling, on metoprolol tartrate 50 mg daily and atorvastatin 40 mg daily (2) Dyslipidemia: Code(s): E78.5 - Hyperlipidemia, unspecified Plan: Continued on atorvastatin 40 mg daily (3) Lung cancer: Code(s): C34.90 - Malignant neoplasm of unspecified part of unspecified bronchus or lung Qualifiers: Laterality: right Lung location: hilum of lung Qualified Code(s): C34.01 - Malignant neoplasm of right main bronchus Plan: Followed by [facility] oncology, to start palliative chemotherapy, has an appointment for port insertion on 04/15/2024 Medications: Changed From atorvastatin 40 mg PO DAILY E78.5 - Hyperlipidemia, unspecified To atorvastatin 40 mg PO DAILY 3 months 90 tabs 2RF E78.5 - Hyperlipidemia, unspecified Coding Level of Care Code Est Pt Level 4 (96641) Complex EM visit Add On G2211 Diagnoses History of non-ST elevation myocardial infarction (NSTEMI) I25.2 Dyslipidemia E78.5 Malignant neoplasm of hilus of right lung C34.01 Laterality: right Lung location: hilum of lung
== END 2024-04-07 16:20 | disposition home or self-care (01) ==
PROVIDERS: PCP Internal Medicine; Visit Provider Internal Medicine
DX: I25.2 Old myocardial infarction (principal); E78.5 Hyperlipidemia, unspecified; C34.01 Malignant neoplasm of right main bronchus
CPT/HCPCS: 99214; G2211

== ENCOUNTER 2024-06-30 13:07 | Outpatient (REF) | payer MEDICARE, SELFPAY ==
[2024-06-30 16:52] LABS: Alanine Aminotransferase 28 U/L (0-31); Anion Gap 10 (12-20); Aspartate Amino Transferase 27 U/L (5-31); Blood Urea Nitrogen 19 mg/dL (9-16); Calcium 9.3 mg/dL (8.4-10.2); Carbon Dioxide 23 mmol/L (22-29); Chloride 114 mmol/L (96-108); Cholesterol 157 mg/dL (<200); Estimated Glomerular Filt Rate 42; Glucose Fasting 91 mg/dL (60-99); HDL Cholesterol 34 mg/dL (>40); LDL Cholesterol Calculated 99 mg/dL (<100); Potassium 4.4 mmol/L (3.3-5.1); Sodium 143 mmol/L (135-145); Triglycerides 121 mg/dL (<150)
[2024-06-30 17:01] LABS: Vitamin D 25-OH Total 83.8 ng/mL (>30)
== END 2024-06-30 13:08 | disposition home or self-care (01) ==
LOC: HO.HMGCLDS 13:07
PROVIDERS: PCP Internal Medicine; Visit Provider Internal Medicine
DX: I25.2 Old myocardial infarction (principal); E78.5 Hyperlipidemia, unspecified; Z78.0 Asymptomatic menopausal state
CPT/HCPCS: 36415; 80048; 80061; 82306; 84450; 84460

== ENCOUNTER 2024-07-01 10:34 | Outpatient (AMB) | payer MEDICARE, SELFPAY ==
--- NOTE | 2024-07-01 10:28 | MHC.PC.OV ---
Intake Visit Reasons: Andriod [phone] f/u lipids Allergies No Known Allergies [No Known Allergies*] Allergy (Verified 07/01/24 11:06) anti-depressions Allergy (Unknown, Uncoded 07/01/24 11:06) nausea and vomiting Medication List - Last Reconciled 07/01/24 by Shilpa Maurer MD alprazolam 1 mg PO atorvastatin 40 mg PO DAILY 3 months cholecalciferol (vitamin D3) 50 mcg PO DAILY folic acid 1 mg PO DAILY metoprolol tartrate 50 mg PO DAILY mometasone 0.1% 1 appl topical DAILY 10 days nitroglycerin mg sublingual pembrolizumab 200 mg IV Q3W quetiapine 50 mg PO BEDTIME Tobacco use date assessed: 07/01/24 Fall risk assessment: No Falls in past year Last assessed Fall Risk: 07/01/24 Dental Screening Dental Screen Date: 07/01/24 Did you have a dental visit in the last 12 months?: No Did you have a dental problem in the last 6 months where you did not have access to dental care?: No Was dental information given to patient?: Patient declined HPI Andriod [phone] f/u lipids HPI Details - The patient is a 74-year-old female presenting for hyperlipidemia follow-up. - Diagnosed with adenocarcinoma of the lung in the right hilar area with metastasis, currently on chemotherapy since April 21, 2024. - Has Coronary artery disease with a prior heart attack; management includes keeping LDL levels in the 70s target range. - Currently on atorvastatin 40 mg with LDL level at 99, down from 105 since December. - Chronic kidney disease stage 3 with GFR reportedly stable at 42, mildly decreased from previous readings.. - Reports occasional aching pain in legs, possibly from statin use. [facility] Medical History (Updated 07/02/24 @ 02:31 by Shilpa Maurer MD) Adenocarcinoma of lung Lung cancer History of non-ST elevation myocardial infarction (NSTEMI) Osteoporosis Vaccination declined by patient Dermatochalasis, bilateral Ptosis, left Positional lightheadedness Otalgia of right ear Dermatitis Not ready to quit smoking Right shoulder pain Menopause Cataracts, both eyes Unspecified amblyopia, left eye Closed extra-articular fracture of distal end of right radius Eczema Depression with anxiety Dyslipidemia History of abdominal aortic aneurysm Astigmatism of both eyes Surgical History History of blepharoplasty History of repair of aneurysm of abdominal aorta using endovascular stent graft H/O breast biopsy History of tonsillectomy Family History Father No problems noted. Mother No problems noted. Sister No problems noted. Son No problems noted. Maternal Aunt No problems noted. Social History Housing: House Alcohol intake: never Patient Tobacco Use Status: Former Tobacco user e-Cigarette/Vaping Use: Never Used service: No Current occupational status: retired Cognitive needs: No Hearing needs: No Vision needs: Yes Questionnaire Thrive Questionnaire Date Thrive assessed: 12/31/23 KIRA-7 AMB Questionnaire KIRA-7 Date KIRA - 7 assessed: 12/31/23 Source: Developed by Drs. Shaji Sky, Lauren Cheung, Jey Hardy and colleagues, with an educational lan from [employer]. Review of Systems Const Denies body aches, Denies fever(s), Reports poor appetite and Denies weakness Eyes Details: amblyopia on left Denies change in vision ENT Denies nasal congestion, Denies nasal discharge and Denies sore throat Card Denies chest pain, Denies lightheadedness, Denies palpitations and Denies dyspnea Resp Denies chest congestion, Denies cough, Denies dyspnea and Denies wheezing GI Denies abdominal pain, Denies change in bowel habits and Denies heartburn Denies urinary frequency, Denies dysuria and Denies urinary urgency Musc Reports as per HPI Neuro Denies Sensory deficit (Neuro) and Denies weakness Psych Reports as per HPI Endo Denies polydipsia, Denies polyuria and Denies palpitations Oliver/Lymph Denies easy bruising Aller/Immun Denies seasonal rhinorrhea and Denies wheezing Physical exam (Primary Care) Tobacco/Smoking Status: Tobacco use Status Tobacco use date assessed 07/01/24 07/01/24 10:34 Patient Tobacco Use Status Former Tobacco user 07/01/24 10:34 e-Cigarette/Vaping Use Never Used 07/01/24 10:34 Thrive Assessment: Date of Thrive Assessment Date Thrive assessed 12/31/23 07/01/24 10:34 Neuro Sensory Exam: No Sensory deficit (Neuro) Telehealth Telehealth Telehealth Platform: [employer] Location of provider rendering services: practice address Location of patient: address on file Patient Identification confirmed using: Name, : Yes Telehealth method: video Patient verbally consented to treatment: Yes Patient verbally consented to billing insurance company: Yes Patient informed of any privacy concerns related to visit: Yes Minutes spent on Phone/Video with Pt.: 15 Results Reviewed Results Reviewed: Name: Florinda Armenta Age/Sex: 74/F : 1950 Unit#: [id number] Attend Dr: Shilpa Maurer MD Re06/30/24 Status: DEP [facility] Disch: SPEC : [id number] GARBIEL: 06/30/24 STATUS: COMP REQ : [id number] RECD: 06/30/24-[address]: Shilpa Maurer MD COMP: 06/30/24-1700 ENTERED: 06/30/24-[address]: ORDERED: Met Prof Fast, AST, ALT, Lipid Panel, Vitamin D 25-OH Test Result Flag Reference Sodium 143 135-145 mmol/L Potassium 4.4 3.3-5.1 mmol/L CL 114 H 96-108 mmol/L CO2 23 22-29 mmol/L Gap 10 L 12-20 BUN 19 H 9-16 mg/dL Creat 1.25 0.5-1.4 mg/dL eGFR 42 Chronic Kidney Disease: Estimated GFR < 60 mL/min/1.73m2 Severe Kidney Disease: Estimated GFR < 15 mL/min/1.73m2 FBS 91 60-99 mg/dL CA 9.3 8.4-10.2 mg/dL AST (GOT) 27 5-31 U/L ALT (GPT) 28 0-31 U/L Triglyceride 121 <150 mg/dL Desirable Triglyceride: less than 150 mg/dL Borderline High Triglyceride 150-199 mg/dL High Triglyceride: 200-499 mg/dL Very High Triglyceride: greater than or equal to 5OO mg/dL Cholesterol 157 <200 mg/dL Desirable Cholesterol: less than 200 mg/dL Borderline High Cholesterol: 200-239 mg/dL High Cholesterol: greater than 239 mg/dL LDL Calculated 99 <100 mg/dL Desirable LDL: less than 100 mg/dL Near Optimal/Above Optimal LDL: 110-129 mg/dL Borderline High LDL: 130-159 mg/dL High LDL: 160-189 mg/dL Very High LDL: greater than or equal to 190 mg/dL HDL 34 L >40 mg/dL Desirable HDL: greater than 40 mg/dL Note: This HDL assay may give artificially low results in patients with liver disease. Vit D 25-OH Tot 83.8 >30 ng/mL Health Based Reference Values* < 20 ng/mL Deficient 20-30 ng/mL Insufficient > 30 ng/mL Sufficient Coding Level of Care Code Tele Est Pt Level 4 (47802) Complex EM visit Add On G2211 Diagnoses Dyslipidemia E78.5 History of non-ST elevation myocardial infarction (NSTEMI) I25.2 Adenocarcinoma of right lung C34.91 Laterality: right Assessment & Plan Assessment & Plan (1) Dyslipidemia: Code(s): E78.5 - Hyperlipidemia, unspecified Category: Medical (2) History of non-ST elevation myocardial infarction (NSTEMI): Code(s): I25.2 - Old myocardial infarction Category: Medical (3) Adenocarcinoma of lung: Code(s): C34.90 - Malignant neoplasm of unspecified part of unspecified bronchus or lung Category: Medical Qualifiers: Laterality: right Qualified Code(s): C34.91 - Malignant neoplasm of unspecified part of right bronchus or lung Plan - Continue monitoring and managing hyperlipidemia; switch atorvastatin to 80 mg to achieve LDL target range. Prescribed 90 tablets for 3 months. - Monitor kidney function closely due to CKD Stage 3; emphasize adequate hydration. - Recommend starting CoQ10 supplementation for potential muscle pain from higher statin dose. - Schedule follow-up in three months with repeat blood work prior. Patient was informed and verbally consented to the use of an ambient scribe for clinic note documentation during this visit. Orders: Orders Basic Metabolic Panel Fasting 09/24/24 E78.5 - Hyperlipidemia, unspecified, I25.2 - Old myocardial infarction Aspartate Amino Transferase 09/24/24 E78.5 - Hyperlipidemia, unspecified, I25.2 - Old myocardial infarction Lipid Panel 09/24/24 E78.5 - Hyperlipidemia, unspecified, I25.2 - Old myocardial infarction Alanine Aminotransferase 09/24/24 E78.5 - Hyperlipidemia, unspecified, I25.2 - Old myocardial infarction Creatine Kinase Total 09/24/24 E78.5 - Hyperlipidemia, unspecified, I25.2 - Old myocardial infarction Medications: New coQ10 (ubiquinol) (Qunol Manolo CoQ10) 100 mg PO DAILY 90 caps 2RF Changed From atorvastatin 40 mg PO DAILY 3 months 90 tabs 2RF E78.5 - Hyperlipidemia, unspecified To atorvastatin 80 mg PO DAILY 3 months 90 tabs 2RF E78.5 - Hyperlipidemia, unspecified
== END 2024-07-01 14:18 | disposition home or self-care (01) ==
LOC: HO.HMCC 10:34
PROVIDERS: PCP Internal Medicine; Visit Provider Internal Medicine
DX: E78.5 Hyperlipidemia, unspecified (principal); I25.2 Old myocardial infarction; C34.91 Malignant neoplasm of unspecified part of right bronchus or lung

== ENCOUNTER → 2024-07-01 10:34 | Outpatient (BNVA) | payer MEDICARE, SELFPAY | PROVIDERS: PCP Internal Medicine; Visit Provider Internal Medicine ==